=== PATIENT | male | born 1965 | race Caucasian/White ===

== ENCOUNTER 2023-03-08 15:33 | Emergency (ER) | payer MEDICARE, SELFPAY ==
[2023-03-08 15:40] VITALS: BP 124/68; PULSE 94; RESP 20; TEMP 36.8; O2SAT 98; BMI 24.4
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
[2023-03-08 17:13] VITALS: BP 127/90; PULSE 87; RESP 22; O2SAT 97
== END 2023-03-08 19:31 | disposition home or self-care (01) ==
PROVIDERS: Emergency Provider Emergency Medicine
DX: Z04.1 Encounter for examination and observation following transport accident (principal)
CPT/HCPCS: 99281